=== PATIENT | female | born 1995 | race African-American/Black ===

== ENCOUNTER 2024-03-12 21:23 | Emergency (ER) | payer OTHER ==
[~2024-03-12] VITALS: Ht 162.6 cm; Wt 87.1 kg
[2024-03-12 21:29] VITALS: BP 111/69; PULSE 100; RESP 16; TEMP 99.2; O2SAT 100; O2SAT 98
== END 2024-03-12 23:10 | disposition left against medical advice (07) ==
LOC: ER 21:23
DX: J45.909 Unspecified asthma, uncomplicated (principal); Z53.21 Procedure and treatment not carried out due to patient leaving prior to being seen by health care provider